=== PATIENT | male | born 1935 | race Caucasian/White ===

== ENCOUNTER 2020-01-11 18:28 | Emergency (ER) | payer MEDICARE, OTHER ==
--- NOTE | 2020-01-11 19:14 | CT ---
EXAM: CT of the lumbar spine without contrast HISTORY: Low back pain after fall today COMPARISON: None TECHNIQUE: Multiple contiguous axial images were obtained in a CT of the lumbar spine without contras t. Sagittal and coronal reformats were performed. FINDINGS: Diffuse osteopenia is seen. There is a questionable fracture along the right aspect of the superior endplate of L2. No significant height loss is seen at this time. There is no retropulsion of the posterior aspect of this vertebral body into the central canal or neural foramina. The vertebr al bodies demonstrate normal alignment without subluxation. Moderate degenerative changes are seen throughout the lumbar spine with intervertebral disc space narrowing and osteophyte formation. Vacuum phenomenon is seen at multiple levels. Scattered diverticula are seen in the colon. Atherosclerotic calcifications are seen in the aorta. IMPRESSION: Likely L2 superior endplate fracture
== END 2020-01-11 20:30 ==
LOC: ERS 18:28
DX: S32.029A Unspecified fracture of second lumbar vertebra, initial encounter for closed fracture (principal); E78.5 Hyperlipidemia, unspecified; E78.00 Pure hypercholesterolemia, unspecified; F41.9 Anxiety disorder, unspecified; Z79.899 Other long term (current) drug therapy; Z79.82 Long term (current) use of aspirin; W19.XXXA Unspecified fall, initial encounter
CPT/HCPCS: 72131

== ENCOUNTER 2020-01-11 22:39 | Emergency (ER) | payer MEDICARE, OTHER ==
--- NOTE | 2020-01-11 23:26 | CT ---
EXAM: CT brain without contrast HISTORY: Fall with head trauma COMPARISON: 11/08/2016 TECHNIQUE: Multiple contiguous axial images were obtained and a CT of the brain without contrast. FINDINGS: There are scattered hypodensities in the subcortical and periventricular white matter consi stent with small vessel ischemic disease. There is no evidence of hydrocephalus, intracranial hemorrhage, or extra-axial fluid collection. The calvarium and overlying soft tissues are unremarkable. The visualized paranasal sinuses and masto id air cells are well aerated. IMPRESSION: No evidence of acute intracranial abnormality
--- NOTE | 2020-01-11 23:27 | CT ---
EXAM: CT of the cervical spine without contrast HISTORY: Fall with head trauma and neck pain COMPARISON: None TECHNIQUE: Multiple contiguous axial images were obtained in a CT of the cervical spine without contr ast. Sagittal and coronal reformats were performed. FINDINGS: The vertebral bodies demonstrate normal height and alignment without fracture or subluxatio n. Severe degenerative changes are seen throughout the cervical spine with intervertebral disc space narrowing and osteophyte formation. No prevertebral soft tissue swelling is seen. The posterior facets are well aligned. Normal alignment of the skull base with the cervical spine is seen. The lung apices are unremarkable. Atherosclerotic calcifications are seen in the carotid arteries. IMPRESSION: No evidence of acute osseous abnormality of the cervical spine.
[2020-01-12] MEDS ORDERED: Bacitracin 1 PK ONE (00:46)
--- NOTE | 2020-01-12 08:11 | RAD ---
Exam: 3 views sacrum and coccyx HISTORY: Pain. Fall. FINDINGS: Sacral ala are preserved. No fracture. Visualized bony pelvis is intact. IMPRESSION: No fracture.
== END 2020-01-12 02:52 ==
LOC: ERS 22:39
DX: S32.029A Unspecified fracture of second lumbar vertebra, initial encounter for closed fracture (principal); S01.01XA Laceration without foreign body of scalp, initial encounter; I49.9 Cardiac arrhythmia, unspecified; E78.5 Hyperlipidemia, unspecified; E78.00 Pure hypercholesterolemia, unspecified; F03.90 Unspecified dementia, unspecified severity, without behavioral disturbance, psychotic disturbance, mood disturbance, and anxiety; F41.9 Anxiety disorder, unspecified; Z79.82 Long term (current) use of aspirin; Z79.899 Other long term (current) drug therapy; W18.30XA Fall on same level, unspecified, initial encounter; Y93.01 Activity, walking, marching and hiking; Y92.129 Unspecified place in nursing home as the place of occurrence of the external cause
CPT/HCPCS: 12002; 70450; 72125; 72131; 72220

== ENCOUNTER 2020-02-01 03:53 | Emergency (ER) | payer MEDICARE, OTHER ==
[2020-02-01] MEDS ORDERED: Adacel (T-DAP) 0.5 ML SYRINGE ONE (04:12)
--- NOTE | 2020-02-01 07:08 | CT ---
PRELIMINARY REPORT/[facility]/EMERGENCY AFTER HOURS PROCEDURE: EXAM: CT Head, without Contrast DATE/ TIME: 02/01/2020, 4:16 AM INDICATION: Trauma, fall. H/O Alzheimer's TECHNIQUE: Axial CT imaging was performed through the head without intravenous administration of con trast. Exam was performed using one or more of the following dose reduction techniques: automated e xposure control, adjustment of the mA and/or kV according to patient size, or use of iterative recons truction technique. COMPARISON: None. FINDINGS: Soft tissue swelling of the right posterior parietal region is seen. There is no intracra nial hemorrhage. The brain is mildly atrophic in this 84-year-old without mass or midline shift. 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 Mild periventricular white-susana er hypoattenuation is seen; although nonspecific this is most commonly related to the sequela of cassandra consultant mariajose small-vessel ischemia. There is no CT evidence of an acute infarct. 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 Imaging begins at the superior maxillary level. Cranial vault demon strates no evidence of fracture. Mastoid air cells are well-aerated. Visualized sinuses are clear. IMPRESSION: 1. CT imaging shows no acute intracranial posttraumatic abnormality. 2. Right parietal extracranial soft tissue contusion. 3. 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 ELECTRONICALLY SIGNED BY: Denis Hoffman DO Feb 01, 2020 4:32:09 AM CDT This report is intended for review by the ordering physician only, in accordance of law. If you recei ve this report in error, please call [facility] at [phone]. FINAL REPORT CT BRAIN WITHOUT CONTRAST: DATE: 02/01/2020 COMPARISON: 01/11/2020. FINDINGS/IMPRESSION: I agree with the findings and impression given in the preliminary report per [facility] physici an. No evidence of acute intracranial abnormality.
== END 2020-02-01 05:00 ==
LOC: ERS 03:53
DX: S00.03XA Contusion of scalp, initial encounter (principal); S00.01XA Abrasion of scalp, initial encounter; F03.90 Unspecified dementia, unspecified severity, without behavioral disturbance, psychotic disturbance, mood disturbance, and anxiety; I49.9 Cardiac arrhythmia, unspecified; E78.5 Hyperlipidemia, unspecified; E78.00 Pure hypercholesterolemia, unspecified; F41.9 Anxiety disorder, unspecified; F32.9 Major depressive disorder, single episode, unspecified; Z79.82 Long term (current) use of aspirin; Z79.899 Other long term (current) drug therapy; W19.XXXA Unspecified fall, initial encounter
CPT/HCPCS: 70450; 90471; 90715

== ENCOUNTER 2020-02-05 22:17 | Inpatient (IN) | payer MEDICARE, OTHER ==
--- NOTE | 2020-02-05 23:16 | RAD ---
Left hip 2 views HISTORY: Fall. FINDINGS: Oblique fracture through the left femoral neck with one half shaft width superior displacem ent of the distal fragment and mild impaction. Mild osteoarthritic changes left hip. IMPRESSION : Impacted left femoral neck fracture.
[2020-02-05 23:21] LABS: #Eosinphils 0.3 thou/uL (0.0-0.7); #Lymphocytes 0.8 thou/uL (1.20-3.40); #Monocytes 0.9 thou/uL (0.11-0.59); #Neutrophils 7.5 thou/uL (1.40-6.50); %Basophils 0.3 % (0.0-1.0); %Eosinophils 3.1 % (0.0-10.0); %Lymphocytes 8.1 % (21.0-51.0); %Monocytes 9.8 % (0.0-10.0); %Neutrophils 78.7 % (42.0-75.0); Hemoglobin 13.3 g/dL (14.0-18.0); Mean Corpuscular Hemoglobin 32.2 pg (27.0-31.0); Mean Corpuscular Volume 97.6 fL (78.0-98.0); Mean Platelet Volume 10.1 fL (7.4-10.4); Platelet Count 142 thou/uL (130-400); RBC Distribution Width 11.9 % (11.5-14.5); Red Blood Cell (RBC) Count 4.13 mill/uL (4.70-6.10); White Blood Cell (WBC) Count 9.5 thou/uL (4.8-10.8)
[2020-02-05 23:28] LABS: INR-International Normal Ratio 1.2; PTT 28.6 SEC (22.9-36.1)
[2020-02-05 23:57] LABS: ALT (SGPT) 16 U/L (8-55); AST (SGOT) 14 U/L (5-34); Albumin 2.9 g/dL (3.4-4.8); Alkaline Phosphatase 91 U/L (40-110); Anion Gap 12 mmol/L (10-20); BUN (Urea Nitrogen) 25 mg/dL (8.4-25.7); Calc. Creatinine Clearance 0 mL/min (70-130); Calcium 8.6 mg/dL (7.8-10.44); Carbon Dioxide 29 mmol/L (23-31); Chloride 104 mmol/L (98-107); Estimated GFR-MDRD Greater than 90; Globulin 2.1 g/dL (2.4-3.5); Glucose 132 mg/dL (83-110); Potassium 3.8 mmol/L (3.5-5.1); Sodium 141 mmol/L (136-145)
[2020-02-06] MEDS ORDERED: Dextrose 50% Abboject 50 ML SYRINGE SLOW IVP PRN (00:29)
[2020-02-06] MEDS ORDERED: hydrALAZINE 20 MG/ML VIAL SLOW IVP PRN (00:29)
[2020-02-06] MEDS ORDERED: Dextrose 5% in Water 1,000 ML IV PRN (00:29)
[2020-02-06] MEDS ORDERED: Ondansetron PF 4 MG/2 ML Vial IVP PRN (00:29)
[2020-02-06] MEDS ORDERED: Gabapentin 100 MG CAP PO PRN (00:32)
[2020-02-06] MEDS ORDERED: traMADol HCl 50 MG TAB PO PRN (00:33)
[2020-02-06] MEDS: Sodium Chloride 0.9% 1,000 ML IV SCH ×3 (02:26→17:49)
[2020-02-06] MEDS: Acetaminophen 325 MG TAB PO SCH ×4 (02:31→18:54)
[2020-02-06] MEDS ORDERED: Haloperidol Lactate 5 MG/ML VIAL SLOW IVP SCH (02:45)
[2020-02-06 03:43] VITALS: BMI 20.2
--- NOTE | 2020-02-06 06:03 | HP ---
REQUESTING PHYSICIAN: Ryann Workman MD CONSULTING PHYSICIAN: Mitch Fraga MD HISTORY OF PRESENT ILLNESS: Mr. Nielsen is an 84-year-old male coming to the ED due to left hip pain. The patient was report from the senior care to be fall 4 days ago. The patient experienced since fall pain consistently, but persistent pain of left hip, in which senior care ordered hip x-ray and found out to have impacted left femoral neck fracture. Upon arrival in the ED, the patient is not in his mental status, able to answer questions, but is a little confused. Vital signs have been stable. REVIEW OF SYSTEMS: Noncontributory except per HPI. PAST MEDICAL HISTORY: Of note, dementia, hyperlipidemia. PAST SURGICAL HISTORY: Appendectomy, tonsillectomy. SOCIAL HISTORY: The patient lives in a long-term care facility. Unable to obtain more social history due to the patient's poor history taking due to dementia. ALLERGIES: ATORVASTATIN, FLUOXETINE, IBUPROFEN, PENICILLIN, PRAVASTATIN, SERTRALINE AND SIMVASTATIN. CURRENT MEDICATIONS: 1. Aspirin. 2. Buspirone. 3. Divalproex. 4. Omeprazole. 5. Temazepam. 6. Venlafaxine. PHYSICAL EXAMINATION: VITAL SIGNS: Heart rate 93, blood pressure 107/69, respiratory rate 18, temperature 98.8, O2 saturation 94% on room air. HEENT: Atraumatic, no bruising, no tender to palpation. NECK: Trachea midline. No bruising. No tender to palpation. CHEST: Atraumatic, no bruising, no tender to palpation. LUNGS: Clear bilaterally. HEART: Regular rate and rhythm. ABDOMEN: Soft, nondistended. EXTREMITIES: Neurovascularly intact x4. Left hip pain and decreased range of motion due to pain. NEUROLOGIC: No focal neurology deficits. GCS 14 due to confusion. LABORATORY DATA: Initial workup showed laboratory white count is 9.5, hemoglobin 13.3. Coagulation is normal. Chemistry; sodium 141, potassium 3.8, creatinine 0.75, glucose 152. Hip x-ray show impacted left femoral neck fracture. ASSESSMENT: 1. Status post ground level fall with late presentation. 2. Left impacted femoral neck fracture. 3. History of dementia. 4. Hyperlipidemia. PLAN: The patient will be admitted to [place] [id number] for pain control. Non- pharmacological DVT prophylaxis. Initiate the gastritis prophylaxis and pulmonary toilet. The patient will be n.p.o. at midnight. Orthopedic, Dr. Fraga will see the patient in the morning and discuss surgical options. Job ID: [id number] [facility]
[2020-02-06] MEDS ORDERED: Prevnar 13-Val Conj/PF 0.5 ML SYRINGE IM ONE (09:00)
[2020-02-06] MEDS: Polyethylene Glycol 3350 17 GM Packet PO SCH (09:47)
[2020-02-06] MEDS: Senokot S 8.6-50 MG TAB PO SCH ×2 (09:47→20:05)
[2020-02-06] MEDS: Famotidine/PF 20 mg/2ml Vial SLOW IVP SCH ×2 (09:52→20:05)
--- NOTE | 2020-02-06 10:15 | PRG ---
DATE OF SERVICE: 02/06/2020 SUBJECTIVE: The patient is currently on the surgical floor. He is status post ground level fall with a delayed presentation approximately 4 days later, he reportedly fell. He was brought to the emergency department, where he was noted to have a hip fracture last night. He has been n.p.o. after midnight and he is currently awaiting surgery. His pain is controlled. He has required a sitter due to his dementia. He keeps trying to get out of bed. Otherwise, he has had no issues overnight. PHYSICAL EXAMINATION: VITAL SIGNS: Temperature is 97.9, heart rate 63, blood pressure 110/64, respirations 14, oxygen saturation 95% on room air. GENERAL: The patient is resting comfortably in bed. He is awake and is reportedly at baseline. He is A and O x1. He is interactive and will follow basic commands. His respirations are nonlabored. HEART: Regular rate and rhythm. ABDOMEN: Soft, nontender. EXTREMITIES: Neurovascularly intact x4. LABORATORY AND DIAGNOSTIC DATA: There are no new labs or radiographs this morning. ASSESSMENT: 1. Status post ground level fall with delayed presentation. 2. Left femoral neck fracture. 3. History of dementia and hyperlipidemia. PLAN: Plan will be to continue supportive care, await surgery which is currently planned for 1230 hours today. Postoperatively, he will begin work with Physical and Occupational Therapy and likely be discharged back to his care home postop day #2 or #3. The patient was evaluated this morning with Dr. Odom during rounds. Job ID: [id number]
[2020-02-06] MEDS ORDERED: PHENYLEPHRINE-NS 100 MCG/ML 10 ML SYRINGE ONE (12:16)
[2020-02-06] MEDS ORDERED: Ondansetron PF 4 MG/2 ML Vial ONE (12:16)
[2020-02-06] MEDS ORDERED: PROPOFOL 200 MG/20 ML VIAL ONE (12:16)
[2020-02-06] MEDS ORDERED: Rocuronium Bromide 10 MG/ML (10ML VIAL) ONE (12:16)
[2020-02-06] MEDS ORDERED: Succinylcholine Chloride 20 MG/ML 10 ml SYRINGE FS ONE (12:16)
[2020-02-06] MEDS ORDERED: Lidocaine 1% PF 5 ML VIAL ONE (12:16)
[2020-02-06] MEDS ORDERED: Glycopyrrolate 0.2 MG/ML 5 ML SYRINGE ONE (12:16)
--- NOTE | 2020-02-06 12:23 | CON ---
DATE OF CONSULTATION: 02/06/2020 REQUESTING PHYSICIAN: Dr. Freddy Odom. CONSULTING PHYSICIAN: Dr. Mitch Fraga. REASON FOR CONSULTATION: Left hip femoral neck fracture. BRIEF CLINICAL HISTORY: Eusebio is an 84-year-old male, who was admitted to [facility] Trauma Team after he apparently fell at his nursing facility. He fell 4 days ago, and he has complained persistently of left hip pain. Plain radiograph diagnosis of femoral neck fracture, and he has been admitted, and our service has been consulted for definitive orthopedic management of this problem. PAST MEDICAL HISTORY: Significant for dementia, but he is relatively high functioning patient. SOCIAL HISTORY: He lives in a long-term care facility. MEDICATIONS: Please see medication reconciliation form. PHYSICAL EXAMINATION: The patient is responsive and appropriate, but he has memory problems. He is A and O x1, but stays in conversation well, and he is very pleasant. Tenderness is elicited with palpation along the left hip joint. Range of motion is not assessed due to an underlying fracture. He is neurovascularly intact in the left lower extremity, but he does have shortening and a little bit of external rotation in the left lower extremity relative to the right. IMAGING STUDIES: AP pelvis demonstrates an impacted shortened varus angulated left femoral neck fracture. IMPRESSION: 1. Left hip shortened angulated femoral neck fracture. 2. Dementia. 3. Ground level fall, low energy. PLAN: The risks, benefits, options, alternatives, and rationale for proceeding with left hip hemiarthroplasty have been explained in great detail to the patient's daughter by telephone, and they are ready to proceed. Job ID: [id number]
[2020-02-06] MEDS ORDERED: Levofloxacin 500 mg/D5W 100 ml Premix Bag ONE (12:26)
[2020-02-06] MEDS ORDERED: Clindamycin/D5W 900 mg/50 ml Premix Bag ONE (12:26)
[2020-02-06] MEDS ORDERED: Fentanyl 100 MCG/2 ML VIAL ONE (12:37)
[2020-02-06] MEDS ORDERED: Promethazine HCl 25 MG/ML VIAL SLOW IVP PRN (14:01)
[2020-02-06] MEDS ORDERED: Ondansetron HCl/PF 4 MG/2 ML Vial IVP PRN (14:01)
[2020-02-06] MEDS ORDERED: Promethazine HCl 25 MG/ML VIAL IM PRN (14:01)
--- NOTE | 2020-02-06 16:39 | RAD ---
TWO VIEWS LEFT HIP: 02/06/20 PROVIDED CLINICAL HISTORY: Postop. FINDINGS: Comparison 02/05/20. Interval postoperative changes of left hip arthroplasty. Associated soft tissue gas. Cutaneous staple s are seen lateral to the hip. IMPRESSION: As above. POS: ASHLEY
[2020-02-06] MEDS ORDERED: Ziprasidone 20 MG VIAL IM PRN (16:54)
[2020-02-06] MEDS ORDERED: Sterile Water 10 ML VIAL FS PRN (17:06)
[2020-02-06] MEDS ORDERED: Lorazepam 1 MG TAB PO PRN (17:56)
[2020-02-06] MEDS: Clindamycin/D5W 600 MG in Premix Bag 1 BAG IVPB SCH (20:01)
[2020-02-06] MEDS: busPIRone HCl 10 MG TAB PO SCH (20:05)
[2020-02-06] MEDS: Temazepam 15 MG CAP PO SCH (20:05)
--- NOTE | 2020-02-06 22:24 | OP ---
DATE OF PROCEDURE: 02/06/2020 PREOPERATIVE DIAGNOSIS: Displaced left subcapital femoral neck fracture. POSTOPERATIVE DIAGNOSIS: Displaced left subcapital femoral neck fracture. PROCEDURE PERFORMED: Left hip hemiarthroplasty. ANESTHESIA: General. SURVEILLANCE SENSOR OFFICER: Bandar Grajeda PA-C ESTIMATED BLOOD LOSS: 200 mL. IMPLANTS: DePuy system was used with a size 6 [place] femoral stem, a 28 x 52 bipolar head, and a +5 Articul/rachel femoral head. COMPLICATIONS: None. DRAINS: None. SPECIMEN: None. OUTCOME: Stable hemiarthroplasty. INDICATIONS FOR PROCEDURE: The patient 84-year-old gentleman with Alzheimer's dementia, who fell approximately four days prior to this admission and at that time, injured the left hip. Upon representation to the emergency room because of ongoing left hip pain, x-rays demonstrated a displaced left femoral neck fracture. As such, the patient now to undergo hemiarthroplasty. Informed consent has been obtained. I believe all questions have been answered. DESCRIPTION OF PROCEDURE: The patient was brought to the operating room and a time-out performed followed by induction of general anesthesia. Next, he was placed in the right lateral decubitus position and a sterile prep and drape was performed in the left lower extremity. Next, a curvilinear incision was made centered over the greater trochanter of the left hip. After skin was sharply incised, dissection was carried down through the subcutaneous fat to the level of the fascia chetan and tensor fascia. This structure was incised in line with the skin incision reflected anteriorly and posteriorly revealing the underlying trochanteric bursa. The bursal fibers were swept off the short external rotators and then an elevator was passed under the abductors, now exposing the superior and inferior gemelli as well as the piriformis tendon. These tendons were taken off with electrocautery from the posterior aspect of the femur and tagged and reflected posteriorly exposing the capsule. The capsule was incised in a T capsulotomy fashion with the leaflets tagged for eventual repair. Next, a T-handle corkscrew device was used to remove the femoral head. This was sized on the back table to a size 52. Next, an oscillating saw was used to make a femoral neck cut. This was followed by use of a box chisel to initially open the proximal femur followed by a T-handle awl down the shaft. A lateralizing reamer was then used, then progressive T-handle awl was passed down the shaft up to a size 6. Next, broaching was started at size 3, continued up to size 6, which gave excellent proximal fit and fill. A trial reduction was then performed on the size 6 stem with the 1.5 head component almost restoring leg lengths to equal. This did result in a very stable hip. Given just the slight shortening, it was decided to proceed with a +5 femoral head. The trial components were then removed from the hip. The acetabulum and the proximal femur irrigated thoroughly with Pulsavac, a total of 2 L used. This was then followed by insertion of the size 6 final stem into the proximal femur and then application of the bipolar head on top of the stem with reduction. The hip was found to be very stable with zoroastrianism of leg lengths. At this point, wound closure was performed. The capsule was reapproximated with #2 Vicryl followed by #2 Vicryl to reattach the short external rotators to the posterior aspect of the greater trochanter. This was then followed by #2 Vicryl for the fascia chetan and tensor fascia followed by 0 Vicryl for the López's fascia, 2-0 Vicryl subcutaneously, and matt for the skin. Xeroform gauze and tape dressing were applied to the thigh and the patient was transferred to recovery room in stable condition. There were no complications. The patient tolerated the procedure well. Job ID: [id number]
--- NOTE | 2020-02-07 00:49 | PRG ---
DATE OF SERVICE: 02/06/2020 SUBJECTIVE: Mr. Nielsen is an 84-year-old with a ground level fall. He sustained left hip fracture. He underwent ORIF of left hip fracture today. Postop, reported by nurse that he has been stable with vital signs stable. He voiced no pain of concern. OBJECTIVE: GENERAL: Currently, the patient lying down in bed comfortable, sound asleep with no acute respiratory distress. I did not wake him up to perform examination. VITAL SIGNS: Currently stable with temperature 98.9, heart rate 84, respiratory rate 18, O2 saturation 100 on 2 L, and blood pressure 127/73. ASSESSMENT: 1. Status post ground level fall. 2. Left hip fracture. 3. History of dementia and hyperlipidemia. PLAN: We will continue supportive care. Continue pain control. The patient will need to work with physical therapy, occupational therapy tomorrow. Anticipate placement in a retirement home facility. The patient's home medications are placed. Job ID: [id number]
[2020-02-07] MEDS: Acetaminophen 325 MG TAB PO SCH ×4 (01:35→18:31)
[2020-02-07] MEDS ORDERED: Haloperidol Lactate 5 MG/ML VIAL SLOW IVP SCH (04:30)
[2020-02-07] MEDS: Clindamycin/D5W 600 MG in Premix Bag 1 BAG IVPB SCH ×2 (04:41→12:31)
[2020-02-07] MEDS: Sodium Chloride 0.9% 1,000 ML IV SCH ×2 (04:42→16:29)
[2020-02-07 05:57] LABS: #Lymphocytes 0.7 thou/uL (1.20-3.40); #Monocytes 0.9 thou/uL (0.11-0.59); %Basophils 0.1 % (0.0-1.0); %Eosinophils 0.3 % (0.0-10.0); %Lymphocytes 8.1 % (21.0-51.0); %Monocytes 10.8 % (0.0-10.0); %Neutrophils 80.7 % (42.0-75.0); Hemoglobin 12.1 g/dL (14.0-18.0); Mean Corpuscular HGB CONC 32.7 g/dL (32.0-36.0); Mean Corpuscular Hemoglobin 32.1 pg (27.0-31.0); Mean Corpuscular Volume 98.2 fL (78.0-98.0); Mean Platelet Volume 10.4 fL (7.4-10.4); Platelet Count 155 thou/uL (130-400); RBC Distribution Width 11.7 % (11.5-14.5); Red Blood Cell (RBC) Count 3.77 mill/uL (4.70-6.10); White Blood Cell (WBC) Count 8.7 thou/uL (4.8-10.8)
[2020-02-07 06:19] LABS: Anion Gap 12 mmol/L (10-20); BUN (Urea Nitrogen) 14 mg/dL (8.4-25.7); Calc. Creatinine Clearance 74 mL/min (70-130); Calcium 8.6 mg/dL (7.8-10.44); Carbon Dioxide 29 mmol/L (23-31); Chloride 105 mmol/L (98-107); Estimated GFR-MDRD Greater than 90; Glucose 102 mg/dL (83-110); Magnesium 1.9 mg/dL (1.6-2.6); Potassium 3.5 mmol/L (3.5-5.1); Sodium 142 mmol/L (136-145)
[2020-02-07] MEDS: Famotidine 20 MG TAB PO SCH ×2 (09:37→20:30)
[2020-02-07] MEDS: Polyethylene Glycol 3350 17 GM Packet PO SCH (09:37)
[2020-02-07] MEDS: busPIRone HCl 10 MG TAB PO SCH ×3 (09:37→20:30)
[2020-02-07] MEDS: Senokot S 8.6-50 MG TAB PO SCH ×2 (09:37→20:30)
[2020-02-07] MEDS: Aspirin 81 mg Enteric Coated Tablet PO SCH (09:37)
[2020-02-07] MEDS: Venlafaxine HCl XR 75 MG CAP PO SCH (09:37)
--- NOTE | 2020-02-07 12:00 | PRG ---
DATE OF SERVICE: 02/07/2020 SUBJECTIVE: The patient is currently on the surgical floor. He is postop day 1 status post left hip hemiarthroplasty after a ground-level fall when he sustained a left hip fracture. The patient had intermittent issues with impulsivity and sleep last night. This morning, he was sound asleep when we entered the room, but he awoke to gentle verbal stimuli. He was interactive and appropriate and appeared to be at his baseline. OBJECTIVE: VITAL SIGNS: Temperature is 98.9, heart rate 96, respirations 17, oxygen saturations 100% on room air, and blood pressure is 131/42. GENERAL: The patient is resting comfortably in bed. He responded appropriately to verbal stimuli and follow my commands. HEENT: Unremarkable. LUNGS: Clear to auscultation with moderate inspiratory and expiratory effort. HEART: Regular rate and rhythm. ABDOMEN: Soft, flat, and nontender with active bowel sounds. EXTREMITIES: Neurovascularly intact x4. LABORATORY FINDINGS: White blood cell count 8.7, hemoglobin 12.1, hematocrit 37.0, and platelets 155. Sodium 142, potassium 3.5, chloride 107, CO2 of 29, BUN 14, creatinine 0.68, glucose 102, magnesium 1.9, and phosphorus 3.0. There are no radiographs reviewed this morning. ASSESSMENT: 1. Status post ground-level fall. 2. Postop day #1 status post left hip hemiarthroplasty. 3. History of Alzheimer dementia. 4. Hypomagnesemia. PLAN: Plan will be to continue supportive care, begin physical and occupational therapy today, and work on placement. The patient had his magnesium replaced this morning. We have resumed all of his home medications and started chemical VTE prophylaxis. Evaluation and examination were done with Dr. Odom during rounds. Job ID: [id number]
[2020-02-07] MEDS: Temazepam 15 MG CAP PO SCH (20:30)
--- NOTE | 2020-02-08 01:46 | PRG ---
DATE OF SERVICE: 02/07/2020 SUBJECTIVE: Mr. Nielsen remained in surgical floor. The patient was seen on round this evening. The patient reports pain was well controlled. He is able to walk around the room with Physical Therapy today. He tolerated with his regular diet. He remained calm and cooperative at this moment. He had one episode of bladder distention in which he needed the straight-cath this evening approximately 5 p.m. OBJECTIVE: VITAL SIGNS: Currently, the patient is lying in bed, comfortable with no acute respiratory distress. The patient's mental status is at his baseline. GCS 15. VITAL SIGNS: Stable. LUNGS: Clear bilaterally. HEART: Regular rate and rhythm. ABDOMEN: Soft, nondistended. EXTREMITIES: Neurovascularly intact x4. Postop dressing clean, dry, intact. ASSESSMENT: 1. Status post ground level fall. 2. Status post left hip hemiarthroplasty. 3. History of dementia. PLAN: Will be to continue supportive care. Continue pain control. Continue DVT prophylaxis. Continue working with Physical Therapy and Occupational Therapy. Anticipate placement in intermediate facility tomorrow. Job ID: [id number]
[2020-02-08] MEDS: Acetaminophen 325 MG TAB PO SCH ×3 (02:25→12:09)
[2020-02-08] MEDS: busPIRone HCl 10 MG TAB PO SCH (08:58)
[2020-02-08] MEDS: Venlafaxine HCl XR 75 MG CAP PO SCH (08:58)
[2020-02-08] MEDS ORDERED: Enoxaparin Sodium 40 MG/0.4 ML SYRINGE SC SCH (09:00)
[2020-02-08] MEDS: Aspirin 81 mg Enteric Coated Tablet PO SCH (09:04)
[2020-02-08] MEDS: Famotidine 20 MG TAB PO SCH (09:04)
[2020-02-08] MEDS: Polyethylene Glycol 3350 17 GM Packet PO SCH (10:19)
[2020-02-08] MEDS: Senokot S 8.6-50 MG TAB PO SCH (10:20)
[2020-02-08 11:30] VITALS: BP 97/56; TEMP 98.1
--- NOTE | 2020-02-08 15:30 | DIS ---
DATE OF ADMISSION: 02/06/2020 DATE OF DISCHARGE: 02/08/2020 ADMISSION DIAGNOSES: 1. Status post ground level fall with delayed presentation, approximately 1 day. 2. Left impacted femoral neck fracture. 3. History of dementia and hyperlipidemia. CONSULTATIONS: Orthopedics, Dr. Fraga. PROCEDURE PERFORMED: Left hip hemiarthroplasty. HOSPITAL COURSE: The patient is an 84-year-old man, who was brought to the emergency department from a custodial for reportedly falling the day prior and one reports that possibly as many as 4 days prior. The patient was brought to the emergency department where he was evaluated and noted to have the above injury. He will be taken to the operating room to undergo his above procedure which he tolerated well. The patient was able to work with physical and occupational therapy, even in light of his dementia, he was cooperative. The patient at the time of discharge worked with physical and occupational therapy. He was tolerating a diet. His pain was controlled. He will follow up with Dr. Fraga in 2-3 weeks, sooner as needed. The patient was discharged to inpatient rehab. Job ID: [id number]
--- NOTE | 2020-02-08 16:04 | EKG ---
Test Reason : Blood Pressure : / mmHG Vent. Rate : 096 BPM Atrial Rate : 096 BPM P-R Int : 152 ms QRS Dur : 086 ms QT Int : 380 ms P-R-T Axes : 040 009 -33 degrees QTc Int : 480 ms Sinus rhythm with frequent Premature atrial complexes Nonspecific ST and T wave abnormality Prolonged QT Abnormal ECG Confirmed by MATY BUTTS ([id number]) on 02/08/2020 4:04:15 PM Referred By: JEFFERY VILLAGOMEZ Confirmed By:MATY UBTTS
--- NOTE | 2020-02-09 09:22 | EKG ---
Test Reason : Blood Pressure : / mmHG Vent. Rate : 098 BPM Atrial Rate : 098 BPM P-R Int : 156 ms QRS Dur : 086 ms QT Int : 348 ms P-R-T Axes : 024 041 -31 degrees QTc Int : 444 ms Sinus rhythm with Premature atrial complexes with Abberant conduction Nonspecific ST and T wave abnormality Abnormal ECG Confirmed by ALOK BORREGO ([id number]), slot editor CHRIS NOYOLA ([id number]) on 02/09/2020 9:21:45 AM Referred By: Confirmed By:ALOK BORREGO
== END 2020-02-08 13:30 | DRG 470 ==
LOC: ERS 22:17 → SURG A 02-06 00:33
PROVIDERS: ADMIT Surgery; ATTEND Surgery
PROC: 0SRS0JZ Replacement of Left Hip Joint, Femoral Surface with Synthetic Substitute, Open Approach (ICD-10-PCS; principal; 2020-02-06)
DX: S72.002A Fracture of unspecified part of neck of left femur, initial encounter for closed fracture (principal); F03.90 Unspecified dementia, unspecified severity, without behavioral disturbance, psychotic disturbance, mood disturbance, and anxiety; E78.5 Hyperlipidemia, unspecified; F41.9 Anxiety disorder, unspecified; F32.9 Major depressive disorder, single episode, unspecified; W18.30XA Fall on same level, unspecified, initial encounter; E83.42 Hypomagnesemia; N32.89 Other specified disorders of bladder; Z90.49 Acquired absence of other specified parts of digestive tract; Z90.89 Acquired absence of other organs; Z88.0 Allergy status to penicillin; Z88.8 Allergy status to other drugs, medicaments and biological substances
CPT/HCPCS: 36415; 80048; 80053; 83735; 84100; 84484; 85025; 85610; 85730; 93005; 93010; 96360; 96361; J1630; J1650; J1956; J2001; J2405; J2704; J3010; J3486; J3490; S0028